=== PATIENT | male | born 1955 | race Caucasian/White ===

== ENCOUNTER 2017-09-10 22:27 | Emergency (ER) | payer MEDICAID ==
[~2017-09-10] VITALS: Ht 177.8 cm; Wt 99.8 kg
[~2017-09-10 22:27] MED LIST: ASPI81TA31 PO; METO25TA3 PO
[2017-09-10 23:03] LABS: BASOPHILS # (AUTO) 0.1 K/uL (0.0-8.0); BASOPHILS % (AUTO) 0.7 % (0.0-2.0); EOSINOPHILS # (AUTO) 0.3 K/uL (0.0-0.7); EOSINOPHILS % (AUTO) 2.9 % (0.0-7.0); HEMOGLOBIN 13.9 G/DL (14.0-18.0); LYMPHOCYTES # (AUTO) 2.1 K/UL (0.8-4.8); MEAN CORPUSCULAR HGB CONC 33 g/dL (32.0-37.0); MONOCYTES # (AUTO) 0.5 K/UL (0.1-1.30); NEUTROPHILS # (AUTO) 6.1 K/UL (1.8-8.9); NEUTROPHILS % (AUTO) 67.4 % (38.5-71.5); PLATELET COUNT (AUTO) 189 K/UL (150-450); RED BLOOD CELL COUNT(AUTO) 4.33 MIL/UL (4.7-6.1); WHITE BLOOD COUNT (AUTO) 9.1 K/UL (4.0-11.2)
[2017-09-10 23:10] LABS: CREATININE 1.5 mg/dL (0.6-1.3); POTASSIUM 4.4 mmol/L (3.5-5.1)
[2017-09-10 23:17] LABS: BILIRUBIN,DIRECT 0.1 mg/dL (0.0-0.2); BILIRUBIN,TOTAL 0.6 mg/dL (0.2-1.0); TOTAL PROTEIN, SERUM 6.9 g/dL (6.4-8.2)
[2017-09-10 23:41] LABS: *BILIRUBIN,URIN NEGATIVE (NEGATIVE); *BLOOD, URINE 2+ (NEGATIVE); *COLOR,URINE STRAW (YELLOW); *KETONES,URINE NEGATIVE (NEGATIVE); *PROTEIN,URINE NEGATIVE (NEGATIVE); *UROBILINOGEN,URINE 0.2 E.U./dl (NORMAL); LEUKOCYTE ESTERASE ,URINE 2+ (NEGATIVE); NITRITE, URINE NEGATIVE (NEGATIVE); PH,URINE 6.5 (5.0-8.0); UGLUCOSE NEGATIVE (NEGATIVE)
[2017-09-10 23:46] LABS: *CLARITY,URINE HAZY (CLEAR)
[2017-09-11 00:06] LABS: BACTERIA,URINE FEW /HPF (NONE SEEN); SQUAMOUS EPITHELIAL CELL,UR FEW /HPF (NONE SEEN); WBC,URINE 20-50 /HPF (0-3)
--- NOTE | 2017-09-11 01:06 | NUR ---
Patient discharged to home in stable conditon. Written and verbal after care instructions given. Patient verbalizes understanding of instructions.
[2017-09-11 01:07] VITALS: BP 117/86
== END 2017-09-11 01:07 | disposition home or self-care (01) ==
LOC: ER 22:30
DX: N39.0 Urinary tract infection, site not specified (principal); F17.200 Nicotine dependence, unspecified, uncomplicated; I10 Essential (primary) hypertension; Z79.82 Long term (current) use of aspirin; Z90.49 Acquired absence of other specified parts of digestive tract
CPT/HCPCS: 36415; 70030-TC; 71010; 83690; 85025; 85730; 87086; 93005; A4663; J0696; J1170; J2405; J7030; J7060

== ENCOUNTER 2017-12-16 18:45 | Emergency (ER) | payer MEDICAID ==
[~2017-12-16] VITALS: Ht 177.8 cm; Wt 99.8 kg
--- NOTE | 2017-12-16 19:06 | NUR ---
Report taken from day shift RN. Assuming PT care at this time
[2017-12-16] MEDS ORDERED: ONDANSETRON 4 MG/2 ML VIAL IV ONE (20:00)
[2017-12-16] MEDS ORDERED: MORPHINE SULFATE 2 MG/1 ML DISP.SYRIN IV ONE (20:00)
[2017-12-16] MEDS ORDERED: IV NORMAL SALINE 1000 ML BAG IV ONE (20:00)
[2017-12-16] MEDS ORDERED: HYDROMORPHONE 1 MG/1 ML DISP.SYRIN IV ONE ×2 (20:30→22:00)
[2017-12-16] MEDS ORDERED: HYDROMORPHONE 1 MG/1 ML DISP.SYRIN ONE (20:36)
[2017-12-16] MEDS ORDERED: ONDANSETRON 4 MG/2 ML VIAL ONE (20:37)
[2017-12-16 20:50] LABS: BASOPHILS % (AUTO) 0.6 % (0.0-2.0); EOSINOPHILS # (AUTO) 0.2 K/uL (0.0-0.7); EOSINOPHILS % (AUTO) 3.4 % (0.0-7.0); HEMATOCRIT 42.7 % (36.7-47.1); HEMOGLOBIN 14.5 g/dL (12.5-16.3); LYMPHOCYTES # (AUTO) 1.6 K/uL (20.0-40.0); LYMPHOCYTES % (AUTO) 23.4 % (20.5-51.5); MEAN CORPUSCULAR HEMOGLOBIN 33.6 uug (23.8-33.4); MEAN CORPUSCULAR HGB CONC 34 g/dL (32.5-36.3); MEAN CORPUSCULAR VOLUME 98.6 fL (73.0-96.2); MONOCYTES # (AUTO) 0.6 K/uL (2.0-10.0); MONOCYTES % (AUTO) 8.3 % (0.0-11.0); NEUTROPHILS # (AUTO) 4.4 K/uL (1.8-8.9); NEUTROPHILS % (AUTO) 64.3 % (38.5-71.5); PLATELET COUNT (AUTO) 181 K/uL (152-348); RED BLOOD CELL COUNT(AUTO) 4.32 MIL/uL (4.06-5.63); WHITE BLOOD COUNT (AUTO) 6.8 K/uL (3.6-10.2)
[2017-12-16 20:59] LABS: CREATININE 1.4 mg/dL (0.6-1.3); POTASSIUM 4.7 mmol/L (3.5-5.1)
[2017-12-16 21:05] LABS: BILIRUBIN,DIRECT 0.1 mg/dL (0.0-0.2); BILIRUBIN,TOTAL 0.6 mg/dL (0.2-1.0); TOTAL PROTEIN, SERUM 6.7 g/dL (6.4-8.2)
--- NOTE | 2017-12-16 21:06 | NUR ---
pt being taken to ct via tyesha
[2017-12-16] MEDS ORDERED: NORMAL SALINE FLUSH 10 ML DISP.SYRIN ONE (21:32)
[2017-12-16] MEDS ORDERED: IV NORMAL SALINE 250 ML IV ONE (21:32)
[2017-12-16] MEDS ORDERED: IOHEXOL 300MG/ML 100 ML INFUS..BTL ONE (21:32)
[2017-12-16] MEDS ORDERED: HYDROMORPHONE 1 MG/1 ML DISP.SYRIN IM ONE (22:15)
[2017-12-16] MEDS ORDERED: HYDROMORPHONE 2 MG/1 ML DISP.SYRIN ONE (22:28)
--- NOTE | 2017-12-16 22:30 | NUR ---
Patient discharged to home in stable conditon. Written and verbal after care instructions given. Patient verbalizes understanding of instructions. IV dc'ed w/ catheter intact. no bleeding noted at site.
[2017-12-16 22:55] VITALS: BP 133/78
== END 2017-12-16 22:30 | disposition home or self-care (01) ==
LOC: ER 18:47
DX: M54.41 Lumbago with sciatica, right side (principal); G89.29 Other chronic pain; I10 Essential (primary) hypertension; F17.200 Nicotine dependence, unspecified, uncomplicated; Z79.82 Long term (current) use of aspirin; Z88.8 Allergy status to other drugs, medicaments and biological substances; Z90.79 Acquired absence of other genital organ(s)
CPT/HCPCS: 36415; 85025; A4663; J1170; J2405; J3490; J7030; J7050; Q9967

== ENCOUNTER 2018-01-02 17:44 | Emergency (ER) | payer MEDICAID ==
[~2018-01-02] VITALS: Ht 177.8 cm; Wt 99.8 kg
[2018-01-02 18:44] LABS: *BILIRUBIN,URIN NEGATIVE (NEGATIVE); *BLOOD, URINE Trace-lysed (NEGATIVE); *CLARITY,URINE SLIGHTLY CLOUDY (CLEAR); *COLOR,URINE YELLOW (YELLOW); *KETONES,URINE NEGATIVE (NEGATIVE); *PROTEIN,URINE NEGATIVE (NEGATIVE); *UROBILINOGEN,URINE 0.2 E.U./dl (NORMAL); LEUKOCYTE ESTERASE ,URINE 1+ (NEGATIVE); NITRITE, URINE NEGATIVE (NEGATIVE); PH,URINE 6.5 (5.0-8.0); UGLUCOSE NEGATIVE (NEGATIVE)
[2018-01-02 18:57] LABS: RBC,URINE 0-3 /HPF (0-3)
[2018-01-02 18:58] LABS: BACTERIA,URINE FEW /HPF (NONE SEEN); SQUAMOUS EPITHELIAL CELL,UR FEW /HPF (NONE SEEN); WBC,URINE 20-50 /HPF (0-3)
[2018-01-02] MEDS: IV NORMAL SALINE 1000 ML BAG IV ONE (19:00)
[2018-01-02] MEDS: ONDANSETRON 4 MG/2 ML VIAL IV ONE (19:02)
[2018-01-02] MEDS: HYDROMORPHONE 1 MG/1 ML DISP.SYRIN IV ONE (19:04)
[2018-01-02] MEDS ORDERED: ONDANSETRON 4 MG/2 ML VIAL ONE (19:19)
[2018-01-02] MEDS ORDERED: HYDROMORPHONE 2 MG/1 ML DISP.SYRIN ONE (19:19)
[2018-01-02 19:35] LABS: BASOPHILS % (AUTO) 0.7 % (0.0-2.0); EOSINOPHILS # (AUTO) 0.2 K/uL (0.0-0.7); EOSINOPHILS % (AUTO) 3.3 % (0.0-7.0); HEMOGLOBIN 13.9 g/dL (12.5-16.3); LYMPHOCYTES # (AUTO) 1.6 K/uL (20.0-40.0); LYMPHOCYTES % (AUTO) 24.3 % (20.5-51.5); MEAN CORPUSCULAR HEMOGLOBIN 33.3 uug (23.8-33.4); MEAN CORPUSCULAR HGB CONC 34 g/dL (32.5-36.3); MEAN CORPUSCULAR VOLUME 98.2 fL (73.0-96.2); MONOCYTES # (AUTO) 0.4 K/uL (2.0-10.0); MONOCYTES % (AUTO) 5.9 % (0.0-11.0); NEUTROPHILS # (AUTO) 4.4 K/uL (1.8-8.9); NEUTROPHILS % (AUTO) 65.8 % (38.5-71.5); PLATELET COUNT (AUTO) 210 K/uL (152-348); RED BLOOD CELL COUNT(AUTO) 4.17 MIL/uL (4.06-5.63); WHITE BLOOD COUNT (AUTO) 6.6 K/uL (3.6-10.2)
[2018-01-02 19:39] LABS: BILIRUBIN,DIRECT 0.1 mg/dL (0.0-0.2); BILIRUBIN,TOTAL 0.6 mg/dL (0.2-1.0); CREATININE 1.4 mg/dL (0.6-1.3); TOTAL PROTEIN, SERUM 7.1 g/dL (6.4-8.2)
[2018-01-02] MEDS: CEFTRIAXONE 1 G in IV DEXTROSE 5% 50 ML IV ONE (20:16)
[2018-01-02] MEDS ORDERED: CEFTRIAXONE 1 G VIAL ONE (20:18)
--- NOTE | 2018-01-02 21:04 | NUR ---
Patient discharged to home in stable conditon. Written and verbal after care instructions given. Patient verbalizes understanding of instructions.
== END 2018-01-02 21:07 | disposition home or self-care (01) ==
LOC: ER 17:46
DX: N39.0 Urinary tract infection, site not specified (principal); I10 Essential (primary) hypertension; Z79.82 Long term (current) use of aspirin; Z88.8 Allergy status to other drugs, medicaments and biological substances; F17.200 Nicotine dependence, unspecified, uncomplicated; Z90.49 Acquired absence of other specified parts of digestive tract
CPT/HCPCS: 36415; 76770; 85025; 87040; 87086; 93005; A4663; J0696; J1170; J2405; J7030; J7060

== ENCOUNTER 2018-01-31 03:57 | Emergency (ER) | payer MEDICAID ==
[~2018-01-31] VITALS: Ht 177.8 cm; Wt 95.3 kg
--- NOTE | 2018-01-31 04:14 | NUR ---
AJSS GUSTAFSON AT BEDSIDE FOR MSE.
[2018-01-31 04:18] LABS: *BILIRUBIN,URIN NEGATIVE (NEGATIVE); *BLOOD, URINE 1+ (NEGATIVE); *CLARITY,URINE SLIGHTLY CLOUDY (CLEAR); *COLOR,URINE YELLOW (YELLOW); *KETONES,URINE NEGATIVE (NEGATIVE); *PROTEIN,URINE NEGATIVE (NEGATIVE); *UROBILINOGEN,URINE 0.2 E.U./dl (NORMAL); LEUKOCYTE ESTERASE ,URINE 1+ (NEGATIVE); NITRITE, URINE NEGATIVE (NEGATIVE); UGLUCOSE NEGATIVE (NEGATIVE)
[2018-01-31] MEDS ORDERED: HYDROMORPHONE 2 MG/1 ML DISP.SYRIN ONE (04:23)
[2018-01-31] MEDS ORDERED: ONDANSETRON 4 MG/2 ML VIAL ONE (04:23)
[2018-01-31 04:26] LABS: BACTERIA,URINE MODERATE /HPF (NONE SEEN); SQUAMOUS EPITHELIAL CELL,UR FEW /HPF (NONE SEEN); WBC,URINE 80-100 /HPF (0-3)
[2018-01-31 04:28] LABS: URINE AMORPHOUS PHOSPHATES FEW /HPF
[2018-01-31] MEDS: HYDROMORPHONE 1 MG/1 ML DISP.SYRIN IM ONE (04:28)
[2018-01-31] MEDS: ONDANSETRON IV *ER 4 MG/2 ML VIAL IM ONE (04:28)
--- NOTE | 2018-01-31 04:30 | NUR ---
[facility] AT BEDSIDE FOR BLOOD DRAW.
[2018-01-31] MEDS ORDERED: LEVOFLOXACIN 750 MG TABLET ONE (04:34)
[2018-01-31] MEDS: LEVOFLOXACIN 750 MG TABLET PO ONE (04:36)
--- NOTE | 2018-01-31 04:52 | NUR ---
PT AMBULATED TO AND FROM BATHROOM INDEPENDENTLY W/ STEADY GAIT. DENIES DIZZINESS OR SOB. NO DISTRESS NOTED.
[2018-01-31 05:09] LABS: CREATININE 1.4 mg/dL (0.6-1.3)
--- NOTE | 2018-01-31 05:18 | NUR ---
Patient discharged to home in stable conditon. Written and verbal after care instructions given. Patient verbalizes understanding of instructions. Pt ambulated from ER w/ steady gait. Pt took all personal belongings.
[2018-01-31 05:20] VITALS: BP 122/77
== END 2018-01-31 05:20 | disposition home or self-care (01) ==
LOC: ER 03:57
DX: N39.0 Urinary tract infection, site not specified (principal); I10 Essential (primary) hypertension; F17.210 Nicotine dependence, cigarettes, uncomplicated; Z90.49 Acquired absence of other specified parts of digestive tract; Z79.82 Long term (current) use of aspirin; Z79.899 Other long term (current) drug therapy; Z90.89 Acquired absence of other organs
CPT/HCPCS: 36415; 87077; 87086; A4663; J1170; J2405

== ENCOUNTER 2018-03-01 21:26 | Emergency (ER) | payer MEDICAID ==
[~2018-03-01] VITALS: Ht 177.8 cm; Wt 99.8 kg
--- NOTE | 2018-03-01 21:40 | NUR ---
Dr. Noriega at bedside for MSE.
[2018-03-01] MEDS ORDERED: IV NORMAL SALINE 1000 ML BAG IV ONE ×2 (21:45→23:00)
[2018-03-01] MEDS ORDERED: MORPHINE SULFATE 2 MG/1 ML DISP.SYRIN IV ONE (21:45)
[2018-03-01] MEDS ORDERED: ONDANSETRON 4 MG/2 ML VIAL IV ONE (21:45)
[2018-03-01] MEDS ORDERED: MORPHINE SULFATE 4 MG/1 ML DISP.SYRIN ONE ×3 (21:51→23:17)
[2018-03-01] MEDS ORDERED: ONDANSETRON 4 MG/2 ML VIAL ONE (21:51)
[2018-03-01 22:09] LABS: CREATININE 1.4 mg/dL (0.6-1.3)
[2018-03-01 22:15] LABS: BILIRUBIN,DIRECT 0.2 mg/dL (0.0-0.2); BILIRUBIN,TOTAL 0.7 mg/dL (0.2-1.0)
[2018-03-01 22:17] LABS: BASOPHILS # (AUTO) 0.1 K/uL (0.0-8.0); BASOPHILS % (AUTO) 0.5 % (0.0-2.0); EOSINOPHILS # (AUTO) 0.1 K/uL (0.0-0.7); EOSINOPHILS % (AUTO) 1.1 % (0.0-7.0); HEMATOCRIT 49.1 % (36.7-47.1); HEMOGLOBIN 16.7 g/dL (12.5-16.3); LYMPHOCYTES # (AUTO) 1.6 K/uL (20.0-40.0); LYMPHOCYTES % (AUTO) 14.4 % (20.5-51.5); MEAN CORPUSCULAR HEMOGLOBIN 33.1 uug (23.8-33.4); MEAN CORPUSCULAR HGB CONC 34 g/dL (32.5-36.3); MEAN CORPUSCULAR VOLUME 97.5 fL (73.0-96.2); MONOCYTES # (AUTO) 0.6 K/uL (2.0-10.0); MONOCYTES % (AUTO) 5.1 % (0.0-11.0); NEUTROPHILS # (AUTO) 8.9 K/uL (1.8-8.9); NEUTROPHILS % (AUTO) 78.9 % (38.5-71.5); PLATELET COUNT (AUTO) 236 K/uL (152-348); RED BLOOD CELL COUNT(AUTO) 5.04 MIL/uL (4.06-5.63); WHITE BLOOD COUNT (AUTO) 11.3 K/uL (3.6-10.2)
--- NOTE | 2018-03-01 22:25 | NUR ---
Patient reports nausea is gone, pain decreased on the abdomen, but still high about 9. MD notified.
[2018-03-01] MEDS ORDERED: MORPHINE SULFATE 4 MG/1 ML DISP.SYRIN IV ONE ×2 (22:30→23:00)
--- NOTE | 2018-03-01 23:00 | NUR ---
Xray at bedside.
--- NOTE | 2018-03-01 23:00 | NUR ---
Patient reports no nausea, but pain is increasing about 910. MD notified.
--- NOTE | 2018-03-01 23:17 | NUR ---
Patient states pain still at 08/06. MD notified.
[2018-03-01 23:37] LABS: *BILIRUBIN,URIN NEGATIVE (NEGATIVE); *BLOOD, URINE Trace-lysed (NEGATIVE); *CLARITY,URINE CLEAR (CLEAR); *COLOR,URINE YELLOW (YELLOW); *KETONES,URINE NEGATIVE (NEGATIVE); *PROTEIN,URINE NEGATIVE (NEGATIVE); *UROBILINOGEN,URINE 0.2 E.U./dl (NORMAL); LEUKOCYTE ESTERASE ,URINE 2+ (NEGATIVE); NITRITE, URINE NEGATIVE (NEGATIVE); UGLUCOSE NEGATIVE (NEGATIVE)
[2018-03-01 23:48] LABS: BACTERIA,URINE FEW /HPF (NONE SEEN); RBC,URINE 0-3 /HPF (0-3); SQUAMOUS EPITHELIAL CELL,UR NONE SEEN /HPF (NONE SEEN)
--- NOTE | 2018-03-02 00:28 | NUR ---
Patient reports pain on abdomen still 08/06. MD notified.
[2018-03-02] MEDS ORDERED: LEVOFLOXACIN 500 MG TABLET ONE (00:30)
[2018-03-02] MEDS ORDERED: MORPHINE SULFATE 4 MG/1 ML DISP.SYRIN IM ONE (00:30)
[2018-03-02] MEDS ORDERED: LEVOFLOXACIN 500 MG TABLET PO ONE (00:30)
[2018-03-02] MEDS ORDERED: MORPHINE SULFATE 4 MG/1 ML DISP.SYRIN ONE (00:43)
--- NOTE | 2018-03-02 00:55 | NUR ---
Patient discharged to home in stable conditon. Written and verbal after care instructions given. Patient verbalizes understanding of instructions. Patient ambulated out of ER with steady gait, no acute signs of distress, VSS, all belongings taken.
[2018-03-02 04:55] VITALS: BP 112/63
== END 2018-03-02 00:55 | disposition home or self-care (01) ==
LOC: ER 21:26
DX: J18.9 Pneumonia, unspecified organism (principal); N39.0 Urinary tract infection, site not specified; I10 Essential (primary) hypertension; F17.210 Nicotine dependence, cigarettes, uncomplicated; Z88.8 Allergy status to other drugs, medicaments and biological substances; Z79.899 Other long term (current) drug therapy; Z79.82 Long term (current) use of aspirin
CPT/HCPCS: 36415; 83690; 85025; 87077; 87086; 93005; A4663; J2270; J2405; J7030

== ENCOUNTER 2018-07-16 03:36 | Emergency (ER) | payer SELFPAY ==
[~2018-07-16] VITALS: Ht 177.8 cm; Wt 95.3 kg
[2018-07-16] MEDS ORDERED: IV NORMAL SALINE 1000 ML BAG IV ONE (04:00)
[2018-07-16] MEDS ORDERED: ONDANSETRON 4 MG/2 ML VIAL IV ONE (04:00)
[2018-07-16] MEDS ORDERED: HYDROMORPHONE 1 MG/1 ML DISP.SYRIN IV ONE (04:00)
[2018-07-16] MEDS ORDERED: HYDROMORPHONE 2 MG/1 ML DISP.SYRIN ONE (04:11)
[2018-07-16] MEDS ORDERED: ONDANSETRON 4 MG/2 ML VIAL ONE (04:11)
[2018-07-16 04:27] LABS: *BILIRUBIN,URIN NEGATIVE (NEGATIVE); *BLOOD, URINE 1+ (NEGATIVE); *CLARITY,URINE TURBID (CLEAR); *COLOR,URINE YELLOW (YELLOW); *KETONES,URINE NEGATIVE (NEGATIVE); *PROTEIN,URINE 1+ (NEGATIVE); *UROBILINOGEN,URINE 0.2 E.U./dl (NORMAL); LEUKOCYTE ESTERASE ,URINE 1+ (NEGATIVE); NITRITE, URINE NEGATIVE (NEGATIVE); PH,URINE 6.5 (5.0-8.0); UGLUCOSE NEGATIVE (NEGATIVE)
[2018-07-16 04:28] LABS: BILIRUBIN,DIRECT 0.2 mg/dL (0.0-0.2); BILIRUBIN,TOTAL 0.9 mg/dL (0.2-1.0); CREATININE 1.2 mg/dL (0.6-1.3); POTASSIUM 3.8 mmol/L (3.5-5.1); TOTAL PROTEIN, SERUM 6.5 g/dL (6.4-8.2)
[2018-07-16 04:40] LABS: BACTERIA,URINE FEW /HPF (NONE SEEN); MUCUS,URINE MANY /LPF (0-FEW); SQUAMOUS EPITHELIAL CELL,UR NONE SEEN /HPF (NONE SEEN); WBC,URINE 20-50 /HPF (0-3)
[2018-07-16] MEDS ORDERED: CEFTRIAXONE 1 G VIAL ONE (04:58)
[2018-07-16] MEDS ORDERED: CEFTRIAXONE 1 G in IV DEXTROSE 5% 50 ML IV ONE (05:00)
--- NOTE | 2018-07-16 05:20 | NUR ---
PHARM NOTE: [email or web address] 1 GM STARTED AT 0454/ ENDED AT 0520
--- NOTE | 2018-07-16 05:20 | NUR ---
Patient discharged to home in stable conditon. Patient reported being free of pain prior to discharge. Written and verbal after care instructions given. Patient verbalizes understanding of instructions. Peripheral IV was removed. Patient able to ambulate unassisted with steady gait. Patient left with all personal belongings.
[2018-07-16 05:23] VITALS: BP 140/75
[2018-07-16 06:00] LABS: BASOPHILS % (AUTO) 0.4 % (0.0-2.0); EOSINOPHILS # (AUTO) 0.2 K/uL (0.0-0.7); EOSINOPHILS % (AUTO) 3.1 % (0.0-7.0); HEMATOCRIT 42.9 % (36.7-47.1); HEMOGLOBIN 14.4 g/dL (12.5-16.3); LYMPHOCYTES # (AUTO) 2.1 K/uL (20.0-40.0); LYMPHOCYTES % (AUTO) 27.7 % (20.5-51.5); MEAN CORPUSCULAR HEMOGLOBIN 33.6 uug (23.8-33.4); MEAN CORPUSCULAR HGB CONC 34 g/dL (32.5-36.3); MEAN CORPUSCULAR VOLUME 100.4 fL (73.0-96.2); MONOCYTES # (AUTO) 0.6 K/uL (2.0-10.0); MONOCYTES % (AUTO) 7.5 % (0.0-11.0); NEUTROPHILS # (AUTO) 4.7 K/uL (1.8-8.9); NEUTROPHILS % (AUTO) 61.3 % (38.5-71.5); PLATELET COUNT (AUTO) 194 K/uL (152-348); RED BLOOD CELL COUNT(AUTO) 4.27 MIL/uL (4.06-5.63); WHITE BLOOD COUNT (AUTO) 7.6 K/uL (3.6-10.2)
== END 2018-07-16 05:20 | disposition home or self-care (01) ==
LOC: ER 03:37
DX: N39.0 Urinary tract infection, site not specified (principal); I10 Essential (primary) hypertension; Z88.8 Allergy status to other drugs, medicaments and biological substances; F17.200 Nicotine dependence, unspecified, uncomplicated
CPT/HCPCS: 36415; 71045; 80048; 80076; 81001; 85025; 87077; 87086; 87186; 93005; 96365; 96375; 99285; A4663; J0696; J1170; J2405; J7030; J7060

== ENCOUNTER 2019-01-10 20:50 | Emergency (ER) | payer SELFPAY ==
[~2019-01-10] VITALS: Ht 177.8 cm; Wt 86.2 kg
--- NOTE | 2019-01-10 21:04 | NUR ---
Dr. Kahn at bedside for MSE.
[2019-01-10] MEDS ORDERED: HYDROMORPHONE HCL 2 MG TABLET PO ONE (21:15)
[2019-01-10] MEDS ORDERED: ONDANSETRON ODT 4 MG TAB.RAPDIS SL ONE (21:15)
[2019-01-10] MEDS ORDERED: ONDANSETRON ODT 4 MG TAB.RAPDIS ONE (21:18)
[2019-01-10] MEDS ORDERED: HYDROMORPHONE HCL 2 MG TABLET ONE (21:18)
--- NOTE | 2019-01-10 21:20 | NUR ---
Pt provided urine sample, sent to lab.
[2019-01-10 21:21] LABS: *BILIRUBIN,URIN NEGATIVE (NEGATIVE); *BLOOD, URINE NEGATIVE (NEGATIVE); *CLARITY,URINE SLIGHTLY CLOUDY (CLEAR); *COLOR,URINE YELLOW (YELLOW); *KETONES,URINE NEGATIVE (NEGATIVE); *UROBILINOGEN,URINE 0.2 E.U./dl (NORMAL); LEUKOCYTE ESTERASE ,URINE 1+ (NEGATIVE); NITRITE, URINE NEGATIVE (NEGATIVE); UGLUCOSE NEGATIVE (NEGATIVE)
[2019-01-10 21:23] LABS: BASOPHILS # (AUTO) 0.1 K/uL (0.0-8.0); BASOPHILS % (AUTO) 1.1 % (0.0-2.0); EOSINOPHILS # (AUTO) 0.2 K/uL (0.0-0.7); EOSINOPHILS % (AUTO) 2.2 % (0.0-7.0); HEMATOCRIT 45.8 % (36.7-47.1); HEMOGLOBIN 15.4 g/dL (12.5-16.3); LYMPHOCYTES # (AUTO) 1.6 K/uL (20.0-40.0); MEAN CORPUSCULAR HEMOGLOBIN 32.1 uug (23.8-33.4); MEAN CORPUSCULAR HGB CONC 34 g/dL (32.5-36.3); MEAN CORPUSCULAR VOLUME 95.3 fL (73.0-96.2); MONOCYTES # (AUTO) 0.6 K/uL (2.0-10.0); MONOCYTES % (AUTO) 7.2 % (0.0-11.0); NEUTROPHILS # (AUTO) 5.8 K/uL (1.8-8.9); NEUTROPHILS % (AUTO) 70.5 % (38.5-71.5); PLATELET COUNT (AUTO) 210 K/uL (152-348); RED BLOOD CELL COUNT(AUTO) 4.81 MIL/uL (4.06-5.63); WHITE BLOOD COUNT (AUTO) 8.2 K/uL (3.6-10.2)
[2019-01-10 21:31] LABS: CREATININE 1.4 mg/dL (0.6-1.3); POTASSIUM 4.2 mmol/L (3.5-5.1)
[2019-01-10 21:36] LABS: SQUAMOUS EPITHELIAL CELL,UR FEW /HPF (NONE SEEN); WBC,URINE 20-50 /HPF (0-3)
[2019-01-10 21:37] LABS: BACTERIA,URINE MODERATE /HPF (NONE SEEN); MUCUS,URINE MODERATE /LPF (0-FEW); URINE AMORPHOUS PHOSPHATES FEW /HPF
[2019-01-10 21:43] LABS: BILIRUBIN,DIRECT 0.1 mg/dL (0.0-0.2); BILIRUBIN,TOTAL 0.6 mg/dL (0.2-1.0); TOTAL PROTEIN, SERUM 7.2 g/dL (6.4-8.2)
--- NOTE | 2019-01-10 21:43 | NUR ---
Patient discharged to home in stable conditon. Written and verbal after care instructions given. Patient verbalizes understanding of instructions.
== END 2019-01-10 21:44 | disposition home or self-care (01) ==
LOC: ER 20:53
DX: N39.0 Urinary tract infection, site not specified (principal); G89.29 Other chronic pain; R10.84 Generalized abdominal pain; Z71.6 Tobacco abuse counseling; I10 Essential (primary) hypertension; F17.290 Nicotine dependence, other tobacco product, uncomplicated; Z88.8 Allergy status to other drugs, medicaments and biological substances; Z79.82 Long term (current) use of aspirin; Z79.899 Other long term (current) drug therapy
CPT/HCPCS: 36415; 83690; 85025; 87077; 87086; A4663; Q0162

== ENCOUNTER 2019-01-21 00:06 | Emergency (ER) | payer MEDICAID ==
[~2019-01-21] VITALS: Ht 180.3 cm; Wt 86.2 kg
--- NOTE | 2019-01-21 00:20 | NUR ---
Pt ambulated to ER with c/o bilateral lower abd pain w nausea x 8 hrs. Denies vomiting, dysuria. Denies diarrhea/constipation. Last BM was yesterday afternoon per pt. Denies chest pain/sob. Safety measures implemented. Will ctm.
--- NOTE | 2019-01-21 00:24 | NUR ---
Dr. Jomar REGAN MD at bedside to evaluate pt.
[2019-01-21] MEDS ORDERED: ONDANSETRON 4 MG/2 ML VIAL IM ONE ×2 (00:30→02:30)
[2019-01-21] MEDS ORDERED: HYDROMORPHONE 1 MG/1 ML DISP.SYRIN IM ONE ×2 (00:30→02:30)
[2019-01-21] MEDS ORDERED: HYDROMORPHONE 2 MG/1 ML DISP.SYRIN ONE ×2 (00:31→02:37)
[2019-01-21] MEDS ORDERED: ONDANSETRON 4 MG/2 ML VIAL ONE ×2 (00:31→02:37)
--- NOTE | 2019-01-21 01:00 | NUR ---
Pt states pain is relieved. Pending CT scan results.
--- NOTE | 2019-01-21 02:56 | NUR ---
Patient discharged to home in stable conditon. Written and verbal after care instructions given. Patient verbalizes understanding of instructions. Pt left ER w stable gait. All belongings w pt. VSS. NAD noted. No N/V/D. Pt states he has an [employer] to take him home.
[2019-01-21 02:59] VITALS: BP 149/88
== END 2019-01-21 03:00 | disposition home or self-care (01) ==
LOC: ER 00:07
DX: R10.31 Right lower quadrant pain (principal); R10.32 Left lower quadrant pain; I10 Essential (primary) hypertension; F17.200 Nicotine dependence, unspecified, uncomplicated; Z88.8 Allergy status to other drugs, medicaments and biological substances; Z79.82 Long term (current) use of aspirin; Z79.899 Other long term (current) drug therapy
CPT/HCPCS: 74176; 96372 ×4; 99284; J1170 ×2; J2405 ×2; A4663

== ENCOUNTER 2019-01-21 12:13 | Inpatient (IN) | payer MEDICAID ==
[~2019-01-21] VITALS: Ht 180.3 cm; Wt 86.2 kg
[2019-01-21] MEDS ORDERED: IV NORMAL SALINE 1000 ML BAG IV ONE (12:45)
[2019-01-21] MEDS ORDERED: ONDANSETRON 4 MG/2 ML VIAL ONE (12:45)
[2019-01-21] MEDS ORDERED: ONDANSETRON 4 MG/2 ML VIAL IV ONE (12:45)
[2019-01-21] MEDS ORDERED: MORPHINE SULFATE 2 MG/1 ML DISP.SYRIN IV ONE (12:45)
[2019-01-21] MEDS ORDERED: MORPHINE SULFATE 4 MG/1 ML DISP.SYRIN ONE (12:45)
--- NOTE | 2019-01-21 13:00 | NUR ---
Per pt to be admitted to m/s, SBAR report given to Johnnie on m/s floor via telephone.
[2019-01-21 13:01] LABS: BASOPHILS # (AUTO) 0.1 K/uL (0.0-8.0); BASOPHILS % (AUTO) 0.9 % (0.0-2.0); EOSINOPHILS # (AUTO) 0.1 K/uL (0.0-0.7); HEMATOCRIT 48.3 % (36.7-47.1); HEMOGLOBIN 16.2 g/dL (12.5-16.3); LYMPHOCYTES # (AUTO) 0.9 K/uL (20.0-40.0); LYMPHOCYTES % (AUTO) 11.9 % (20.5-51.5); MEAN CORPUSCULAR HEMOGLOBIN 32.2 uug (23.8-33.4); MEAN CORPUSCULAR HGB CONC 34 g/dL (32.5-36.3); MEAN CORPUSCULAR VOLUME 96.1 fL (73.0-96.2); MONOCYTES # (AUTO) 0.4 K/uL (2.0-10.0); NEUTROPHILS # (AUTO) 6.4 K/uL (1.8-8.9); NEUTROPHILS % (AUTO) 81.2 % (38.5-71.5); PLATELET COUNT (AUTO) 195 K/uL (152-348); RED BLOOD CELL COUNT(AUTO) 5.03 MIL/uL (4.06-5.63); WHITE BLOOD COUNT (AUTO) 7.9 K/uL (3.6-10.2)
[2019-01-21 13:06] LABS: CREATININE 1.3 mg/dL (0.6-1.3); POTASSIUM 4.2 mmol/L (3.5-5.1)
[2019-01-21 13:11] LABS: BILIRUBIN,DIRECT 0.2 mg/dL (0.0-0.2); BILIRUBIN,TOTAL 0.8 mg/dL (0.2-1.0); TOTAL PROTEIN, SERUM 7.2 g/dL (6.4-8.2)
[2019-01-21 13:32] LABS: *BILIRUBIN,URIN NEGATIVE (NEGATIVE); *BLOOD, URINE Trace-lysed (NEGATIVE); *COLOR,URINE YELLOW (YELLOW); *KETONES,URINE TRACE (NEGATIVE); *UROBILINOGEN,URINE 0.2 E.U./dl (NORMAL); LEUKOCYTE ESTERASE ,URINE 1+ (NEGATIVE); NITRITE, URINE NEGATIVE (NEGATIVE); PH,URINE 6.5 (5.0-8.0); UGLUCOSE NEGATIVE (NEGATIVE)
[2019-01-21 13:34] LABS: *CLARITY,URINE HAZY (CLEAR)
[2019-01-21 13:55] LABS: RBC,URINE 20-50 /HPF (0-3)
[2019-01-21 13:56] LABS: WBC,URINE 50-80 /HPF (0-3)
--- NOTE | 2019-01-21 13:56 | NUR ---
Dr. Neil spoke with Raul Srinivasan DNP via telephone, pt has been accepted for m/s admission. Pt resting, states pain improved, NAD noted.
[2019-01-21 13:57] LABS: BACTERIA,URINE MANY /HPF (NONE SEEN)
[2019-01-21 13:58] LABS: SQUAMOUS EPITHELIAL CELL,UR FEW /HPF (NONE SEEN)
--- NOTE | 2019-01-21 14:18 | NUR ---
Pending admission to m/s, admission paperwork pending.
--- NOTE | 2019-01-21 14:25 | NUR ---
Pt tans to m/s floor, NAD noted.
[2019-01-21 15:35] VITALS: BP 159/83
[2019-01-21] MEDS ORDERED: HYDROMORPHONE 1 MG/1 ML DISP.SYRIN IV PRN (16:15)
[2019-01-21] MEDS ORDERED: Z GUARD REMEDY PASTE 57 GM TUBE TOP PRN (17:15)
[2019-01-21] MEDS ORDERED: ACETAMINOPHEN 325 MG TABLET PO PRN (17:15)
[2019-01-21] MEDS: IV NS 1000 ML 1,000 ML IV PRN (17:53)
[2019-01-21] MEDS: CEFTRIAXONE 1 G in IV DEXTROSE 5% 50 ML IV SCH (18:09)
--- NOTE | 2019-01-21 18:26 | NUR ---
Admission Note: Admitted a 63 years old male from ER via W/C. Pt. admitted to [facility] under the care of Dr. Efren Srinivasan. Pt. came with the following hx: SBO, HTN, bladder CA, tonsillectomy, appendectomy, kidney stones, and chronic pain per pt. interview. Pt. has allergies to amlodipine and hydrochlorothiazide. Pt. is full code. Pt. is A/OX4 verbally responsive and able to make his needs known. No SOB or increase work of breathing, on RA and tolerating well. Dr. Srinivasan made aware of pt. admission and awaiting for med recon. Pt. c/o 10/10 p[address]s mid abdominal pain. Dr. Srinivasan made aware with order for Dilaudid 1 mg IV q4h prn for pain., administered promptly. All pt. needs attended and met promptly. Skin intact upon initial assessment. Pt. is ambulatory with steady gait. Pt. is continent of B&B, per pt. last BM was 01/20/19. Pt. NPO per Dr. Srinivasan for possible AM procedure. Noted with LT. AC 20G patent and intact. 0.9% NS started at 75 cc/hr per order. Oriented pt. to unit and emphasized use of call light for assistance. Kept pt. clean and dry. Call light and all frequently used items within pt. reach. Will endorse to oncoming shift accordingly.
[2019-01-21] MEDS: HYDROMORPHONE 2 MG/1 ML DISP.SYRIN IV PRN ×2 (19:57→22:50)
[2019-01-21] MEDS: ONDANSETRON 4 MG/2 ML VIAL IV PRN (19:59)
--- NOTE | 2019-01-21 20:00 | NUR ---
PATIENT C/O SEVERE PAIN IN ABDOMEN. CALLED OUT TO FOR FURTHER ORDERS. PATIENT GIVEN DILAUDID 2MG IV PRN PER REHABILITATION SERVICES AIDE. ALL NEEDS ATTENDED.
[2019-01-21] MEDS ORDERED: SIMETHICONE 80 MG TAB.CHEW PO PRN (20:15)
[2019-01-21 20:30] VITALS: BP 146/72
--- NOTE | 2019-01-21 21:00 | NUR ---
DR. CARRILLO AT BEDSIDE TO ASSESS PATIENT. RECEIVED NEW ORDER FOR PATIENT TO HAVE NGT PLACED.
--- NOTE | 2019-01-21 21:45 | NUR ---
NGT PLACED TO RIGHT NARES. DARK GREEN LIQUID PRESENT. WILL CONTINUE TO MONITOR AND ASSESS.
[2019-01-22] MEDS: HYDROMORPHONE 2 MG/1 ML DISP.SYRIN IV PRN ×6 (01:55→18:58)
[2019-01-22 06:18] VITALS: BP 178/89
--- NOTE | 2019-01-22 06:23 | NUR ---
PATIENT SLEPT WELL THROUGHOUT NIGHT. NO SIGNS OF ACUTE DISTRESS. NGT ON LOW SUCTION WITH AN OUTPUT OF 800ML. AT AROUND 0430H PATIENT WAS SAYING THAT THE NGT WAS GETTING VERY UNCOMFORTABLE AND WANTED TO TAKE IT OUT. CALLED THE CHARGE NURSE AND SHE REMOVED NGT. PATIENT COMPLAINED OF 10/10 PAIN, ADMINISTERED PRN PAIN MEDICATION AT 0155H AND 0529H AND WAS EFFECTIVE. PATIENTS BP WAS 177/83 AND PATIENT STATED THAT THAT WAS VERY HIGH FOR HIM AND THAT HE WANTED TO TAKE HIS BP MEDICATION, CHARGE NURSE WAS AWARE. SAFETY MEASURES GIVEN.
--- NOTE | 2019-01-22 06:30 | NUR ---
LEFT MESSAGE TO DR. CARRILLO THAT PATIENT DID NOT WANT TO REINSERT NGT.
[2019-01-22 07:47] LABS: BASOPHILS # (AUTO) 0.1 K/uL (0.0-8.0); BASOPHILS % (AUTO) 0.9 % (0.0-2.0); EOSINOPHILS # (AUTO) 0.1 K/uL (0.0-0.7); EOSINOPHILS % (AUTO) 1.1 % (0.0-7.0); HEMATOCRIT 46.1 % (36.7-47.1); HEMOGLOBIN 15.1 g/dL (12.5-16.3); LYMPHOCYTES # (AUTO) 1.2 K/uL (20.0-40.0); MEAN CORPUSCULAR HEMOGLOBIN 31.6 uug (23.8-33.4); MEAN CORPUSCULAR HGB CONC 33 g/dL (32.5-36.3); MEAN CORPUSCULAR VOLUME 96.3 fL (73.0-96.2); MONOCYTES # (AUTO) 0.6 K/uL (2.0-10.0); NEUTROPHILS # (AUTO) 6.4 K/uL (1.8-8.9); PLATELET COUNT (AUTO) 194 K/uL (152-348); RED BLOOD CELL COUNT(AUTO) 4.79 MIL/uL (4.06-5.63); WHITE BLOOD COUNT (AUTO) 8.3 K/uL (3.6-10.2)
[2019-01-22 08:09] LABS: THYROID STIMULATING HORMONE 1.208 mIU/mL (0.358-3.740)
[2019-01-22 08:13] LABS: BILIRUBIN,TOTAL 0.7 mg/dL (0.2-1.0); CREATININE 1.3 mg/dL (0.6-1.3); MAGNESIUM 2.1 mg/dL (1.8-2.4); PHOSPHOROUS 3.5 mg/dL (2.5-4.9); POTASSIUM 4.3 mmol/L (3.5-5.1); TOTAL PROTEIN, SERUM 6.5 g/dL (6.4-8.2)
--- NOTE | 2019-01-22 08:20 | NUR ---
Awake, alert, oriented x 4. Deja HIGH PRESSURE KETTLE OPERATOR at bedside, discussed condition and plan of care. Patient still refused reinsertion of NGT. NPO maintained. SBFT with Gastrograffin ordered, x ray initiated. Complaining of abdominal pain. Dilaudid given. Encouraged ambulation.
[2019-01-22] MEDS: IV NS 1000 ML 1,000 ML IV PRN (08:26)
[2019-01-22] MEDS ORDERED: DIATR MEGLU/DIATRIZOATE SODIUM 30 ML SOLUTION ONE (08:44)
[2019-01-22] MEDS ORDERED: ASPIRIN 81 MG TAB.CHEW PO SCH (09:00)
[2019-01-22] MEDS ORDERED: METOPROLOL SUCCINATE XL 25 MG TAB.SR.24H PO SCH (09:00)
[2019-01-22] MEDS ORDERED: FLEET ENEMA 133 ML BOTTLE RC ONE (09:15)
--- NOTE | 2019-01-22 10:00 | NUR ---
Ambulating in the hallway, independently.
[2019-01-22 11:21] VITALS: BP 147/69
[2019-01-22 15:26] VITALS: BP 157/59
--- NOTE | 2019-01-22 15:40 | NUR ---
SBFT done. Patient passing gas and with several loose BM [facility] in the procedure. Relayed to Jocelyn BA, with orders to advance diet. Clear liquids ordered
--- NOTE | 2019-01-22 17:30 | NUR ---
Tolerated clear liquid diet. No nausea, nor vomiting noted
[2019-01-22] MEDS: CEFTRIAXONE 1 G in IV DEXTROSE 5% 50 ML IV SCH (18:41)
--- NOTE | 2019-01-22 19:20 | NUR ---
Received patient in bed. AAOx4. In no acute distress. IV site on left AC intact and patent. IVF infusing. Denies any pain or SOB at this time. Ambulates ad zina. Safety measure initiated and call troy within reach.
[2019-01-22] MEDS ORDERED: CLONIDINE HCL 0.1 MG TABLET PO PRN (20:30)
[2019-01-22 20:51] VITALS: BP 139/62
[2019-01-22] MEDS ORDERED: METOPROLOL TARTRATE 25 MG TABLET PO SCH (21:00)
[2019-01-22] MEDS: HYDROMORPHONE 1 MG/1 ML DISP.SYRIN IV PRN (22:26)
[2019-01-22] MEDS: ONDANSETRON 4 MG/2 ML VIAL IV PRN (22:37)
[2019-01-23] MEDS: HYDROMORPHONE 1 MG/1 ML DISP.SYRIN IV PRN (01:24)
--- NOTE | 2019-01-23 02:15 | NUR ---
THIS IS A 63 Y.O. MALE THAT WAS ADMITTED FOR A SMALL BOWEL OBSTRUCTION ON 01/21/2019, HAD A NGT INSERTED TO LOW INT SUCTION TO DECOMPRESS ,PAIN MED GIVEN ORDERED, SMALL BOWEL FOLLOW THRU COMPLETED YESTERDAY AM, WAS PUT ON CLEAR LIQUID DIET AND TOLERATED IT WELL.BP MANAGED AND STABLE. ASYMPTOMATIC OF ANY CRISES . THIS PT HAS BEEN ANXIOUS AND UNABLE TO STAY PUT, CONSTANTLY ASKING THE NURSES ABOUT IS PAIN MEDICATIONS THAT DR. FERNANDO HAD ADJUSTED THE DOSE . PT DOES;NT THINK THAT HE IS NOT BEING TAKEN CARED OF HERE AT [place]. HE EVEN MADE A REMARK THAT SO MANY TESTS AND WORK UPS ARE BEING ORDERED BUT NOT BENEFICIAL TO HIM. HE DECIDED TO GO AMA AND REFUSED TO SIGN PAPERWORK, LEFT HOSPITAL WITH ARM BAND ON. APPROPRIATE PERSONNEL NOTIFIED,IN APPARENTLY FAIR CONDITION. IV ACCESS TAKEN OUT.
[2019-01-23] MEDS ORDERED: PANTOPRAZOLE SODIUM 40 MG TABLET.DR PO SCH (07:00)
== END 2019-01-23 02:46 | disposition left against medical advice (07) | DRG 254 ==
LOC: ER 12:13 → MEDSURG3 14:19
PROVIDERS: ADMIT Nurse Practitioner Acute Care; ATTEND Internal Medicine
PROC: 0D9670Z Drainage of Stomach with Drainage Device, Via Natural or Artificial Opening (ICD-10-PCS; principal; 2019-01-21)
DX: K43.0 Incisional hernia with obstruction, without gangrene (principal); Z90.6 Acquired absence of other parts of urinary tract; F17.210 Nicotine dependence, cigarettes, uncomplicated; N20.0 Calculus of kidney; G89.29 Other chronic pain; I10 Essential (primary) hypertension; N26.1 Atrophy of kidney (terminal); Z85.51 Personal history of malignant neoplasm of bladder; Z87.440 Personal history of urinary (tract) infections; Z90.79 Acquired absence of other genital organ(s); Z79.82 Long term (current) use of aspirin; N39.0 Urinary tract infection, site not specified
CPT/HCPCS: 36415; 71045; 74250; 83605; 83690; 83735; 84100; 84443; 85025; 87086; 93307; A4663; G0378; J0696; J1170; J2270; J2405; J7030; J7060; Q9963